=== PATIENT | female | born 1945 | race Caucasian/White ===

== ENCOUNTER 2016-06-19 15:04 | Emergency (ER) | payer MEDICARE ==
[2016-06-19 15:30] VITALS: BP 157/77
--- NOTE | 2016-06-19 16:09 | UC ---
Laceration HPI - HPI Summary HPI Summary: patient has several cuts in right hand from a broken plate. - History Of Current Complaint Chief Complaint: UCLaceration Stated Complaint: RIGHT HAND LACERATION Time Seen by Provider: 06/19/16 15:36 Hx Obtained From: Patient Laceration Location: Finger Mechanism Of Injury: Sharp Trauma Onset/Duration: Sudden Onset Severity: Moderate Aggravating Factors: Movement Related History: Dominant Hand Right - Allergies/Home Medications Allergies/Adverse Reactions: Allergies Allergy/AdvReac Type Severity Reaction Status Date / Time Ibuprofen Allergy Intermediate Rash Verified 06/19/16 15:31 Codeine AdvReac Severe Dizziness Verified 06/19/16 15:31 PMH/Surg Hx/FS Hx/Imm Hx Previously Healthy: Yes Cardiovascular History Of: Reports: Hypertension Cancer History Of: Denies: Breast Cancer - Surgical History Surgical History: Yes Surgery Procedure, Year, and Place: CHOLECYSTECTOMY. OVARIAN CYST REMOVED APPROX 30 YRS AGO - Family History Known Family History: Positive: Unknown, Hypertension, Other - Mom positive for dementia - Social History Alcohol Use: None Substance Use Type: None Smoking Status (MU): Former Smoker - Immunization History Most Recent Tetanus Shot: 2014 Review of Systems Constitutional: Negative Skin: Other - lacerations Eyes: Negative ENT: Negative Respiratory: Negative Cardiovascular: Negative Gastrointestinal: Negative Genitourinary: Negative Motor: Negative Neurovascular: Negative Musculoskeletal: Negative Neurological: Negative Psychological: Negative All Other Systems Reviewed And Are Negative: Yes Physical Exam Triage Information Reviewed: Yes Appearance: Well-Appearing, Well-Nourished, Pain Distress Vital Signs: Initial Vital Signs Temp 98.6 F 06/19/16 15:17 Pulse 60 06/19/16 15:17 Resp 20 06/19/16 15:17 BP 157/77 06/19/16 15:17 Vital Signs Reviewed: Yes Eye Exam: Normal Eyes: Positive: Conjunctiva Clear ENT: Positive: Hearing grossly normal, Pharynx normal, TMs normal Dental Exam: Normal Neck exam: Normal Neck: Positive: Supple, Nontender, No Lymphadenopathy Respiratory Exam: Normal Respiratory: Positive: Chest non-tender, Lungs clear, Normal breath sounds Cardiovascular Exam: Normal Cardiovascular: Positive: RRR, No Murmur, Pulses Normal Abdominal Exam: Normal Abdomen Description: Positive: Nontender, No Organomegaly, Soft Bowel Sounds: Positive: Present Musculoskeletal Exam: Normal Musculoskeletal: Positive: Strength Intact, ROM Intact, No Edema Neurological Exam: Normal Neurological: Positive: Alert, Muscle Tone Normal Psychological Exam: Normal Skin: Positive: Other - 2 cm laceration to left 2nd MCP, small .5 cm cut on 3rd MCP, small puncture on back of wrist Laceration Repair - Laceration Repair 1 Description: Linear : No Repair Necessary Laceration Size After Repair: Length (cm) - 2 cm Modified For Repair: No Cleansing Completed Via Routine Prep: Yes Irrigation With Pressure Irrigation Device: Yes Closure Material: Skin Adhesive, SteriStrips - 2 Closure Method: Single Layer Suture Of: Skin Laceration Course/Dx - Course/Dx Course Of Treatment: hx obtained, exam performed, meds reviewed, laceration dermabond and splinted - Differential Dx - Laceration/Wound Differental Diagnoses: Laceration, Puncture Wound Provider Diagnoses: 2.5 cm laceration on right 2nd MCP joint. minor puncture wound to back of right wrist Discharge - Discharge Plan Condition: Stable Disposition: HOME Patient Education Materials: Laceration (ED), Skin Adhesive Care (ED) Referrals: Esa Leigh MD [Primary Care Provider] - Additional Instructions: 1. Keep the splint in place 2. keep clean and dry, 3. follow up with any sign of infection
== END 2016-06-19 16:10 | disposition home or self-care (01) ==
LOC: UCCORT 15:04
DX: S61.210A Laceration without foreign body of right index finger without damage to nail, initial encounter (principal); S61.213A Laceration without foreign body of left middle finger without damage to nail, initial encounter; S61.531A Puncture wound without foreign body of right wrist, initial encounter; W45.8XXA Other foreign body or object entering through skin, initial encounter; Y93.9 Activity, unspecified; Y92.9 Unspecified place or not applicable; I10 Essential (primary) hypertension; Z90.49 Acquired absence of other specified parts of digestive tract; Z88.6 Allergy status to analgesic agent; Z88.5 Allergy status to narcotic agent; Z87.891 Personal history of nicotine dependence
CPT/HCPCS: 12001; 99211; G0463

== ENCOUNTER 2017-06-02 13:01 | Emergency (ER) | payer MEDICARE, BC ==
[2017-06-02 13:31] VITALS: BP 108/71
--- NOTE | 2017-06-02 13:59 | RAD ---
Indication: LEFT side rib pain post fall 2 days ago. Comparison: December 19, 2012 Technique: Dual energy PA chest and 2 dedicated LEFT rib views obtained. Report: No LEFT rib fracture, pleural effusion, or pneumothorax evident. The lungs are clear. The heart, pulmonary vasculature, and mediastinal contours are unremarkable. Gallbladder fossa level surgical clips. 1.5 cm sclerotic lesion at the proximal metaphysis of the RIGHT humerus is not included in the [id number] on the prior exam is most consistent with an enchondroma given chondroid matrix pattern of calcification and small size. IMPRESSION: 1. No evidence for LEFT rib fracture. 2. Given absence of prior exams to document stability with no relevant exams available on the [facility] consider a follow-up radiographic exam of the RIGHT shoulder in 6 months time to assess for stability of the probable benign enchondroma at the proximal metaphysis of the humerus.
--- NOTE | 2017-06-02 14:34 | UC ---
Minor Trauma HPI - HPI Summary HPI Summary: PT SLIPPED AND FELL IN THE TUB 2 DAYS AGO. STRUCK LEFT RIB CAGE ON TUB EDGE. PAIN HAS GOTTEN PROGRESSIVELY WORSE. PAIN WITH MOVEMENT, COUGHING, SNEEZING, DEEP BREATHS. NO HEAD TRAUMA OR LOC. TRAMADOL NOT HELPING. UNABLE TO TAKE NSAIDS DUE TO H/O GI BLEED. - History of Current Complaint Chief Complaint: UCBackPain Stated Complaint: S/P FALL LEFT SIDE BACK PAIN X 2 DAYS Time Seen by Provider: 06/02/17 13:43 Hx Obtained From: Patient Onset/Duration: Sudden Onset, Lasting Days, Still Present Pain Intensity: 10 - PT IN TEARS Pain Scale Used: 0-10 Numeric Mechanism Of Injury: Blunt Trauma, Direct Blow Aggravating Factor(s): Coughing, Deep Breaths, Movement Associated Signs And Symptoms: Negative: Loss Of Consciousness, Ecchymosis - Allergies/Home Medications Allergies/Adverse Reactions: Allergies Allergy/AdvReac Type Severity Reaction Status Date / Time codeine Allergy Dizziness Verified 06/02/17 13:23 ibuprofen Allergy Rash Verified 06/02/17 13:23 Home Medications: Home Medications Lisinopril 40 mg PO DAILY 06/02/17 [History Confirmed 06/02/17] Pantoprazole TAB (NF) [Protonix TAB (NF)] 40 mg PO DAILY 06/02/17 [History Confirmed 06/02/17] Rosuvastatin Calcium [Crestor] 10 mg PO DAILY 06/02/17 [History Confirmed ] Tramadol HCl 50 mg PO Q6H 06/02/17 [History Confirmed 06/02/17] PMH/Surg Hx/FS Hx/Imm Hx Cardiovascular History: Hypertension GI/ History: Gastrointestional Bleed - Surgical History Surgical History: Yes Surgery Procedure, Year, and Place: CHOLECYSTECTOMY. OVARIAN CYST REMOVED APPROX 30 YRS AGO - Family History Known Family History: Positive: Hypertension, Other - Mom positive for dementia - Social History Alcohol Use: None Substance Use Type: None Smoking Status (MU): Former Smoker - Immunization History Most Recent Tetanus Shot: 2014 Review of Systems Constitutional: Negative Skin: Negative Respiratory: Negative Cardiovascular: Negative Gastrointestinal: Negative Musculoskeletal: Arthralgia, Myalgia All Other Systems Reviewed And Are Negative: Yes Physical Exam Triage Information Reviewed: Yes Appearance: Well-Nourished, Pain Distress - SEVERE. PT HOLDING LEFT SIDE, SPLINTING AND IN TEARS. Vital Signs: Initial Vital Signs Temp 99.0 F 06/02/17 13:19 Pulse 81 06/02/17 13:19 Resp 22 06/02/17 13:19 BP 108/71 06/02/17 13:19 Pulse Ox 92 06/02/17 13:19 Vital Signs Reviewed: Yes Eyes: Positive: Conjunctiva Clear ENT: Positive: Hearing grossly normal Neck: Positive: Supple Respiratory: Positive: No respiratory distress, No accessory muscle use Cardiovascular: Positive: Pulses Normal Abdomen Description: Positive: Nontender, Soft. Negative: Distended, Guarding Musculoskeletal: Positive: No Edema, Other: - EXQUISITELY TTP LEFT RIB CAGE MID AXILLARY LINE Neurological: Positive: Alert Psychological: Positive: Normal Response To Family, Age Appropriate Behavior Skin: Negative: rashes Diagnostics - Radiology LEFT RIB XRAYS Xray Interpretation: No Acute Changes Radiology Interpretation Completed By: Radiologist Minor Trauma Course/Dx - Course Course Of Treatment: DESPITE NEGATIVE RIB X-RAYS PATIENT ADVISED TO GO TO THE [facility] ED FOR FURTHER EVALUATION GIVEN HER LEVEL OF DISCOMFORT. CONCERN FOR POSSIBLE UNDERLYING PATHOLOGY. PATIENT ALSO ADVISED OF INCIDENTAL FINDING OF PROBABLE BENIGN ENDOCHONDROMA SEEN IN THE RIGHT HUMERUS. ADVISED TO FOLLOW-UP WITH THIS WITH HER PCP. - Differential Dx/Diagnosis Provider Diagnoses: LEFT RIB CONTUSION - Physician Notifications Discussed Patient Care With: Liz Cintron - TO [facility] ED BY PRIVATE CAR Time Discussed With Above Provider: 14:30 Discharge - Sign-Out/Discharge Documenting (check all that apply): Discharge/Admit/Transfer - Discharge Plan Condition: Stable Disposition: HOME Patient Education Materials: Rib Contusion (ED) Referrals: Esa Leigh MD [Primary Care Provider] - If Needed Additional Instructions: RIB X-RAY TODAY UNREMARKABLE FOR FRACTURE BUT GIVEN YOUR LEVEL OF DISCOMFORT RECOMMEND GOING TO THE [facility] ED FOR FURTHER EVALUATION FOR POSSIBLE UNDERLYING PATHOLOGY AND/OR PAIN MANAGEMENT. - Billing Disposition and Condition Condition: STABLE Disposition: HOME
== END 2017-06-02 14:53 | disposition home or self-care (01) ==
LOC: UCCORT 13:01
DX: S20.20XA Contusion of thorax, unspecified, initial encounter (principal); W18.2XXA Fall in (into) shower or empty bathtub, initial encounter; Y92.9 Unspecified place or not applicable; Z87.891 Personal history of nicotine dependence; Z88.6 Allergy status to analgesic agent; Z88.5 Allergy status to narcotic agent
CPT/HCPCS: 99212; G0463